=== PATIENT | male | born 1955 | race Caucasian/White ===

== ENCOUNTER 2021-07-17 14:00 | Inpatient (IN) | payer OTHER, SELFPAY ==
[2021-07-17] VITALS (10 sets, daily range): BP systolic 139–184; BP diastolic 51–100; PULSE 78–105; RESP 18–38; TEMP 36.6–36.9; O2SAT 96–99; BMI 19.9
--- NOTE | ~2021-07-17 | CT_ITS ---
EXAMINATION: CT CHEST WITHOUT CONTRAST CLINICAL INFORMATION: Shortness of breath and hypoxia. COMPARISON: Chest radiograph earlier today and MR lumbar spine 05/28/2008 TECHNIQUE: Multidetector volumetric CT imaging of the chest was done. Axial MIP volume rendering provided. Sagittal and coronal reformatted images were obtained. This CT examination was performed using dose optimization techniques as appropriate, variously including the following: *Automated exposure control *Adjustment of mA and/or kV according to patient size (this includes techniques or standardized protocols for targeted exams where dose is matched to indication/reason for exam; i.e. extremities or head) *Use of iterative reconstruction technique DLP: 334 mGy-cm FINDINGS: LUNGS AND PLEURA: Diffuse pulmonary infiltrates are present along with a small right pleural effusion with loculated fluid in the major fissure and a trace left pleural effusion. There is thickening of intralobular septa along with peribronchial cuffing. The pulmonary arteries enlarged at 4.2 cm suggesting pulmonary hypertension. The heart is enlarged with enlargement of both ventricles. An aortic valve prosthesis is present. Severe coronary disease is present. Many of these findings suggests CHF. However, airspace disease is nonspecific. There are some ill-defined pulmonary nodules present (see colon images) and follow-up is necessary to make sure these findings resolve. Associated Covid is certainly a possibility as well. MEDIASTINUM: Heart is enlarged. Coronary calcifications are present. See discussion above. A small pericardial effusion is seen. No gross hilar or mediastinal lymphadenopathy is seen. Small lymph nodes are present. An aortic dissection is present beginning in the distal thoracic aorta where the calcified intima is displaced. The dissection is seen to the bottom slice of the scan. The aortic diameter is not increased. Patency of the lumens cannot be judged as no contrast was administered. On the MR lumbar spine from 2007, the above-mentioned portion of the aorta was not included. The more distal aorta shows no dissection at that time but did demonstrate some mild infrarenal dilatation at 2.6 cm. AXILLA: No lymphadenopathy. UPPER ABDOMEN: Unremarkable. OSSEOUS STRUCTURES: Unremarkable. CT/CT chest wo con IMPRESSION: 1. The heart is enlarged with biventricular failure and pulmonary hypertension. There is increased septal thickening with pleural effusions and peribronchial cuffing. These findings suggest CHF with interstitial edema. Echocardiography would be of value. 2. Additional airspace disease and some ill-defined opacities could represent pneumonia such as Covid. Follow-up CT scan after treatment is recommended to make sure abnormalities clear. 3. Aortic dissection beginning in the distal thoracic aorta extending to the bottom of the scan just above the level of the celiac. Fleischner guidelines were followed.
--- NOTE | ~2021-07-17 | XR_ITS ---
EXAMINATION: XR CHEST CLINICAL INFORMATION: Dyspnea. Rule out pneumonia. COMPARISON: None TECHNIQUE: Frontal view of the chest was obtained. FINDINGS: The cardiac silhouette is slightly enlarged. The thoracic aorta is calcified. Hilar and mediastinal contours are otherwise unremarkable. There is bilateral diffuse airspace disease. There are small bilateral pleural effusions. There are degenerative changes of the spine. XR/XR chest 1V IMPRESSION: Slightly enlarged cardiac silhouette. Bilateral airspace disease and small bilateral pleural effusions. Differential would include CHF and pneumonia.
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
--- NOTE | 2021-07-17 14:21 | ECG_ITS ---
Test Reason : dyspnea Blood Pressure : / mmHG Vent. Rate : 095 BPM Atrial Rate : 095 BPM P-R Int : 154 ms QRS Dur : 092 ms QT Int : 340 ms P-R-T Axes : 057 003 137 degrees QTc Int : 427 ms Sinus rhythm with Premature atrial complexes Left ventricular hypertrophy with repolarization abnormality ( R in aVL , Sokolow-Shelton , [place] product ) ST depression in Lateral leads Abnormal ECG No previous ECGs available Referred By: Yakov Palafox Electronically Signed By:JUDITH OCHOA MD
[2021-07-17] MEDS: Albuterol Sulfate (0.083%) 2.5 MG/3 ML VIAL.NEB 5 MG INHALE (14:32)
[2021-07-17 14:43] LABS: MANUAL DIFF FLAG NO
[2021-07-17 14:46] LABS: Basophils Absolute Auto 0.1 X10*3/uL (0.0-0.2); Basophils Percent Auto 0.9 % (0-2); Eosinophils Percent Auto 0.4 % (0-4); Hematocrit 38.3 % (42.0-52.0); Hemoglobin 12.1 g/dl (14.0-18.0); Imm Gran Abs Auto 0.03 X10*3/uL (0.00-0.03); Imm Gran Pct Auto 0.4 % (0.0-0.4); Lymphocytes Absolute Auto 0.2 X10*3/uL (1.2-4.9); Lymphocytes Percent Auto 3.1 % (20-40); Mean Corpuscular HGB Conc 31.6 g/dl (31.0-36.0); Mean Corpuscular Hemoglobin 30.9 pg (27.0-33.0); Mean Platelet Volume 11.8 fL (9.4-12.4); Monocytes Absolute Auto 0.6 X10*3/uL (0.1-1.2); Monocytes Percent Auto 9.1 % (2-11); Neutrophils Absolute Auto 6.1 x10*3/uL (2.0-8.3); Neutrophils Percent Auto 86.1 % (45-73); Platelet Count 182 X10*3/uL (160-400); Red Blood Count 3.91 X10*6/uL (4.60-5.80); Red Cell Distribution Width 15.5 % (11.0-16.0)
[2021-07-17 14:58] LABS: Lactic Acid 1.8 mmol/L (0.5-2.0)
[2021-07-17 15:00] LABS: COVID-19 Test Negative (Negative)
[2021-07-17 15:12] LABS: Troponin-I High Sensitivity 257.7 ng/L (<3.5-35.0)
[2021-07-17 15:17] LABS: Alanine Aminotransferase 9 U/L (0-40); Albumin Level 4.3 g/dL (3.5-5.0); Alkaline Phosphatase 111 U/L (39-117); Anion Gap 20 (12-20); Aspartate Amino Transferase 25 U/L (5-37); Blood Urea Nitrogen 26 mg/dL (9-16); Calcium 9.5 mg/dL (8.4-10.2); Carbon Dioxide 24 mmol/L (22-29); Chloride 102 mmol/L (96-108); Creatinine Clr Calc Pharmacy 9.3; Estimated Glomerular Filt Rate 8; Glucose Random 109 mg/dL (60-115); Lipase 18 U/L (8-78); Potassium 5.3 mmol/L (3.3-5.1); Sodium 141 mmol/L (135-145); Total Protein 6.4 g/dL (6.5-8.0)
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
[2021-07-17] MEDS: Piperacillin Sodium/Tazobactam 3.375 GM in 0.9 % Sodium Chloride 50 ML IV (15:51)
[2021-07-17 16:43] LABS: ABG Base Excess 1.4 mmol/L; ABG HCO3 25 mmol/L (22-26); ABG pCO2 38 mmHg (32-45); ABG pCO2 TC 37 mmHg (32-45); ABG pH 7.43 (7.35-7.45); ABG pH TC 7.43 (7.35-7.45); ABG pO2 53 mmHg (83-108); ABG pO2 TC 52 (83-108)
[2021-07-17 17:16] LABS: Influenza A PCR NEGATIVE (Negative); Influenza B PCR NEGATIVE (Negative); Resp Syncy Virus RNA Qual PCR NEGATIVE (Negative); SARS COV2 PCR INHOUSE NEGATIVE (Negative)
[2021-07-17] MEDS: vancomycin HCL 1,000 MG in 0.9 % Sodium Chloride 250 ML 270 MG IV (18:04)
[2021-07-17 18:45] LABS: Troponin-I High Sensitivity 521.6 ng/L (<3.5-35.0)
[2021-07-17 18:46] LABS: ABG Refer to POC result
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
[2021-07-17 20:32] LABS: Venous Blood Gas Refer to POC result
[2021-07-17 20:33] LABS: VBG Base Excess 0.6 mmol/L; VBG HCO3 24 mmol/L (22-26); VBG pCO2 33 mmHg; VBG pH 7.46 (7.32-7.43); VBG pO2 81 mmHg
[2021-07-17 20:35] LABS: INTERNATIONAL NORM RATIO 4.4 (0.9-1.1); Prothrombin Time 51.7 SEC (9.9-13.0)
[2021-07-17 20:37] LABS: Partial Thromboplastin Time 47.7 SEC (24.1-38.0)
[2021-07-17 22:18] LABS: ABG Base Excess 0.7 mmol/L; ABG HCO3 24 mmol/L (22-26); ABG pCO2 35 mmHg (32-45); ABG pCO2 TC 35 mmHg (32-45); ABG pH 7.44 (7.35-7.45); ABG pH TC 7.44 (7.35-7.45); ABG pO2 112 mmHg (83-108); ABG pO2 TC 112 (83-108)
[2021-07-17 22:20] LABS: ABG Refer to POC result
[2021-07-18] VITALS (28 sets, daily range): BP systolic 109–177; BP diastolic 54–102; PULSE 72–101; RESP 18–39; TEMP 36.1–36.9; O2SAT 90–100
--- NOTE | 2021-07-18 01:37 | PC.NURSE ---
Pt alert and oriented x4, calm and cooperative. Pt states right shoulder discomfort. Denies chest pain. Pt states breathing has improved since being on BiPap. Pt remains on BiPap at this time, O2 sat at 98%, pt tolerating well. Pt able to talk in complete sentences, does not appear struggling to breath. #20 Right AC intact and flushes without difficulty. Vitals stable. To be transported to ICU with RIA Daugherty and respiratory Munir. Remains on tele monitor.
[2021-07-18] MEDS: methylPREDNISolone Sod Succ 125 MG/2 ML VIAL IVPUSH (03:06)
[2021-07-18] MEDS: fentaNYL citrate/PF 100 MCG/2 ML VIAL 50 MCG IVPUSH (03:15)
[2021-07-18 05:47] LABS: VBG Base Excess -0.7 mmol/L; VBG HCO3 23 mmol/L (22-26); VBG pCO2 36 mmHg; VBG pH 7.41 (7.32-7.43); VBG pO2 58 mmHg
[2021-07-18 06:09] LABS: Imm Gran Abs Auto 0.02 X10*3/uL (0.00-0.03); Imm Gran Pct Auto 0.5 % (0.0-0.4); Red Cell Distribution Width 15.1 % (11.0-16.0)
[2021-07-18 06:11] LABS: Basophils Percent Auto 0.7 % (0-2); Eosinophils Percent Auto 0.2 % (0-4); Hematocrit 31.6 % (42.0-52.0); Hemoglobin 9.7 g/dl (14.0-18.0); Lymphocytes Absolute Auto 0.2 X10*3/uL (1.2-4.9); Lymphocytes Percent Auto 3.6 % (20-40); Mean Corpuscular HGB Conc 30.7 g/dl (31.0-36.0); Mean Corpuscular Hemoglobin 30.3 pg (27.0-33.0); Mean Corpuscular Volume 98.8 fL (80.0-98.0); Mean Platelet Volume 13.3 fL (9.4-12.4); Monocytes Absolute Auto 0.3 X10*3/uL (0.1-1.2); Monocytes Percent Auto 6.3 % (2-11); Neutrophils Absolute Auto 3.7 x10*3/uL (2.0-8.3); Neutrophils Percent Auto 88.7 % (45-73); Platelet Count 108 X10*3/uL (160-400); White Blood Count 4.1 X10*3/uL (4.8-10.8)
[2021-07-18 06:23] LABS: INTERNATIONAL NORM RATIO 4.8 (0.9-1.1)
[2021-07-18 06:26] LABS: Partial Thromboplastin Time 49.2 SEC (24.1-38.0)
[2021-07-18 06:46] LABS: Anion Gap 24 (12-20); Blood Urea Nitrogen 39 mg/dL (9-16); Calcium 8.7 mg/dL (8.4-10.2); Carbon Dioxide 19 mmol/L (22-29); Chloride 105 mmol/L (96-108); Creatinine Clr Calc Pharmacy 7.9; Estimated Glomerular Filt Rate 7; Glucose Random 96 mg/dL (60-115); Phosphorus 7.1 mg/dL (2.7-4.5); Potassium 5.5 mmol/L (3.3-5.1); Sodium 142 mmol/L (135-145)
[2021-07-18 07:22] LABS: Venous Blood Gas Refer to POC result
--- NOTE | 2021-07-18 07:30 | CA_ITS ---
Transthoracic Echocardiogram Patient (Last, First, Middle): Matias Ugarte R Gender: Male Date of : 1955 Age: 66 Procedure Date: 07/18/2021 Procedure Type: Transthoracic Echocardiogram Location: ICU Height: 177.8 cm Weight: 62.6 kg BSA: 1.78 m2 Heart Rate: bpm BP: 124 / 63 mmHg Local Hazmat Driver: Referring MD: Dominique Collins MD Symptoms: ? aortic stenosis, hx of TAVR 3yrs ago Study Quality: Fair ECG Rhythm: Undetermined Conclusions: - The left ventricular systolic function is low normal. The visually estimated ejection fraction is between 50-55%. - The basal inferior segment is hypokinetic. - A bioprosthetic aortic valve is present. The prosthetic aortic valve appears to be functioning abnormally. The peak aortic velocity is 4.39 m/s with a calculated peak gradient of 77 mmHg. The mean gradient is 47 mmHg. The aortic valve area is 0.91 cm2. There is mild aortic valve regurgitation. Dimensionless index 0.23. Acceleration time 83ms. Could be severe patient prosthesis mismatch with superimposed stenosis. - Moderate pulmonary hypertension is present. Findings Left Ventricle Normal left ventricular cavity size. There is moderately increased left ventricular wall thickness. The left ventricular systolic function is low normal. The visually estimated ejection fraction is between 50-55%. Diastolic function is indeterminate on the basis of available data. E/E prime ratio is >15, consistent with elevated filling pressures. Wall Motion Rest Echo Findings The basal inferior segment is hypokinetic. Right Ventricle Mildly increased right ventricular cavity size. There is normal right ventricular systolic function. Atria Mild biatrial enlargement. Aortic Valve A bioprosthetic aortic valve is present. The prosthetic aortic valve appears to be functioning abnormally. The aortic valve was not well visualized. The peak aortic velocity is 4.39 m/s with a calculated peak gradient of 77 mmHg. The mean gradient is 47 mmHg. The aortic valve area is 0.91 cm2. There is mild aortic valve regurgitation. Dimensionless index 0.23. Acceleration time 83ms. Could be severe patient prosthesis mismatch with superimposed stenosis. Mild aortic regurgitation, but unable to state if para-valvular or valvular. Mitral Valve There is mild mitral annular calcification. There is trace mitral valve regurgitation. There is no mitral valve stenosis. Pulmonic Valve The pulmonic valve was not well visualized. Tricuspid Valve Normal tricuspid valve structure. There is mild tricuspid valve regurgitation. The right ventricular systolic pressure is 52 mmHg. Moderate pulmonary hypertension is present. Great Vessels There is mild dilatation of the ascending aorta measuring 3.70 cm. Venous The inferior vena cava was not well visualized. Pericardium/Pleural There is no evidence of pericardial effusion. Prior Study Comparison No prior study available for comparison. Measurements 2D Linear Measurements IVSd: 1.42 0.6-0.9/0.6-1.0 cm LVIDd: 4.32 3.9-5.3/4.2-5.9 cm LVIDd Index: 2.43 2.4-3.2/2.2-3.1 cm/m2 LVIDs: 2.74 2.0-3.6 cm LVPWd: 1.40 0.7-1.1 cm Ao Root: 3.10 2.1-3.5 cm LA Diam: 4.00 2.7-3.8/3.0-4.0 cm LAIDs Index: 2.25 1.5-2.3 cm/m2 LV Mass: 294.71 67-162/88-224 g LV Mass Index: 165.57 43-95/49-115 g/m2 LVOT Diam: 2.00 3.0+(-)1.3 cm 2D Systolic Function EF 4C: 35.00 >55% EF 2C: 40.10 >55% EF BiP: 37.30 >55% Mitral Valve MV VTI: 0.37 MV Pk Greg: 1.52 MV Mn Greg: 0.78 MV Pk Grad: 9.00 MV Mn Grad: 3.00 MV Pk E: 1.53 MV Decel Time: 276.00 E'Lateral: 7.40 E'Medial: 4.90 E/E' Med: 31.20 E/E' Lat: 20.70 PHT: 81.00 MVA PHT: 2.72 MVA Continuity: 2.14 Decel Gray: 5.52 Aortic Valve AoV Pk Greg: 4.39 AoV Mn Greg: 3.20 AoV VTI: 0.86 AoV Pk Grad: 77.00 Aov Mn Grad: 47.00 SHELBY Cont.VTI: 0.91 LVOT LVOT Pk Greg: 1.14 LVOT Mn Greg: 0.79 LVOT VTI: 0.25 LVOT Pk Grad: 5.00 LVOT Mn Grad: 3.00 LVOT Diam: 2.00 LVOT Area: 3.14 Diastolic Function MV Pk E: 1.53 E'Medial: 4.90 E/E' Med: 31.20 E' Laterial: 7.40 E/E' Lat: 20.70 Right Ventricle TAPSE (mm): 24.00 TVS' Greg: 13.60 Tricuspid Valve TR Pk Greg: 3.50 TR Pk Grad: 49.00 RA Press: 3.00 RVSP: 52.00 Great Vessels Aorta Ao Root-2D: 3.10 2.0-3.7 cm Ao Asc: 3.70 2.1-3.4 cm Pulmonary Valve PV Pk Greg: 1.10 Peak PV Grad: 5.00 Updated in Other Vendor System with Status of Final Roger Mclean MD electronically signed on 07/18/2021 4:09:38 PM with status of Final
[2021-07-18] MEDS: Albuterol/Iprat 2.5/0.5MG 3 ML AMPUL.NEB INHALE ×4 (08:05→19:04)
[2021-07-18 08:15] LABS: Troponin-I High Sensitivity 795.7 ng/L (<3.5-35.0)
[2021-07-18 08:36] LABS: Erythrocyte Sedimentation Rate 18 MM/HR (0-15)
[2021-07-18] MEDS: Aspirin 81 MG TAB.CHEW PO (13:17)
[2021-07-18] MEDS: carvediloL 3.125 MG TABLET PO ×2 (13:17→19:16)
[2021-07-18] MEDS: methylPREDNISolone Sod Succ 40 MG/ML VIAL IVPUSH (13:18)
[2021-07-18 13:41] LABS: Troponin-I High Sensitivity 499.5 ng/L (<3.5-35.0)
--- NOTE | 2021-07-18 15:13 | W.PM.CCCN ---
History of Present Illness Data of Consult Service Date: 07/18/21 Requesting physician: Yakov Palafox Primary Care Provider: Unknown Physician HPI Reason for consult: Syncope and acute respiratory failure 66-year-old male with extensive history consisting of COPD and interstitial fibrosis with previous coronary stenting and atherosclerotic disease including abdominal aortic aneurysm and had a TAVR aortic valve replacement 3 and half years ago and also a background of paroxysmal atrial fibrillation and is an end-stage renal disease that is dialysis dependent and he had his last dialysis the day before He was extremely short of breath trying to drive to the hospital had a syncopal episode and has no recall since then and is clearly in marked respiratory distress with respiratory rate in the 40s with accessory muscle use and diaphragmatic effort and in reviewing his CT scan besides the interstitial fibrosis it looks like he might have some superimposed pulmonary edema so we started him on BiPAP support initially veno correcting his oxygenation and gradually his work of breathing started to improve and we sent off a troponin the 1st 1 being elevated at 250 and then we ordered a 2nd 1 and 3 hours later was up to 500 and then this morning to 750 all indicating probable acute coronary syndrome and I did a bedside echo in the emergency room determining he is at mild concentric hypertrophy with mild global hypokinesis with 50% ejection fraction but the aortic valve replacement was heavily calcified with a velocity of 4.5 m/sec establishing this as a critically restenosed valve prosthesis He was not clinically to fluid overloaded and he had normal IVC diameter with inspiratory collapse and treatment with BiPAP did the trick He also has recurrent GI bleeding due to probable angiodysplastic disease and he is on Coumadin because of paroxysmal atrial fibrillation and came in with a therapeutic INR Review of Systems Review of Systems: Yes all other systems are reviewed and are negative [facility] Past Medical History Medical History (Updated 07/18/21 @ 15:11 by Dominique Collins MD) AAA (abdominal aortic aneurysm) On warfarin for atrial fibrillation Surgical History Surgical History (Updated 07/17/21 @ 20:34 by Juany Ramos PA-C) S/P TAVR (transcatheter aortic valve replacement) Social History Social History Household Members: None Housing: House Do you presently have visiting nurse or other home services: No Patient Tobacco Use Status: Current everyday Tobacco user Tobacco use type: Cigarette Cigarette Packs Per Day: 0.5 Cigarettes Per Day: 10.0 Years Smoked: 60 Smoked in Last 30 Days: Yes Use of substances other than those prescribed or required for medical reasons: Yes Substance Use Type: Marijuana Substance Use Frequency: Occasionally Currently Displaying Signs/Symptoms of Drug Intoxication Withdrawal: No Have you been hit, kicked, punched, or otherwise hurt by someone within the past year? If so, by whom?: No Do you feel safe in your current relationship?: No Current Relationship Is there a partner from a previous relationship who is making you feel unsafe now?: No Are you made to feel afraid or neglected: No Spiritual Healthcare Practices: NONE [employer] Healthcare Practices: NONE Cultural Healthcare Practices: NONE Advance Directives: No Advance Directives Information Provided: No Do you have thoughts of harming others: None Do you have a plan to hurt others: No Plan Recently lost weight without trying: No Nutrition Risks: No Nutritional Risk Meds Allergies Allergy/AdvReac Type Severity Reaction Status Date / Time No Known Allergies Allergy Verified 07/17/21 14:20 Active Medications: Current Medications Albuterol/Ipratropium (Albuterol/Iprat 2.5/0.5mg 3 Ml Ampul.Neb) 3 ml INHALE RQ4H WHILE AWAKE [facility] Last Admin: 07/18/21 12:03 Dose: 3 ml Documented by: Aspirin (Aspirin 81 Mg Tab.Chew) 81 mg PO DAILY [facility] Last Admin: 07/18/21 13:17 Dose: 81 mg Documented by: Carvedilol (Carvedilol 3.125 Mg Tablet) 3.125 mg PO BID [facility]; Protocol Last Admin: 07/18/21 13:17 Dose: 3.125 mg Documented by: Lidocaine HCl (Lidocaine Hcl 1 % Mpf 2 Ml Ampul) 0.5 ml SUBCUT [id number] [facility] Last Admin: 07/18/21 14:14 Dose: Not Given Documented by: Methylprednisolone Sodium Succinate (Methylprednisolone Sod Succ 40 Mg/Ml Vial) 40 mg IVPUSH Q8H [facility] Physical Exam Vital Signs: Vital Signs: Last Vital Signs Temp 97.8 F 07/18/21 12:00 Pulse 95 07/18/21 14:00 Resp 20 07/18/21 14:00 BP 141/102 H 07/18/21 14:00 Pulse Ox 96 07/18/21 14:00 Oxygen Flow Rate 15 07/17/21 14:11 BMI result Body Mass Index 20.0 Currently off of BiPAP in no distress alert an oriented and nonfocal Classic parvus and tardus carotid upstrokes with late peaking systolic murmur consistent with critical aortic stenosis Scattered bilateral rales but no diaphragmatic or accessory muscle use Benign abdomen Skin intact Results Labs CBC & Chem 7: 07/18/21 05:39 07/18/21 05:39 Labs: Short CBC 07/18/21 Range/Units 05:39 WBC 4.1 L (4.8-10.8) X10*3/uL Hgb 9.7 L (14.0-18.0) g/dl Hct 31.6 L (42.0-52.0) % Plt Count 108 L D (160-400) X10*3/uL BMP 07/17/21 07/18/21 14:38 05:39 Sodium 141 142 Potassium 5.3 H 5.5 H Chloride 102 105 Carbon Dioxide 24 19 L BUN 26 H 39 H Creatinine 6.71 H* 7.93 H* Calcium 9.5 8.7 D Liver Function 07/17/21 Range/Units 14:38 Total Bilirubin 1.0 (0.0-1.0) mg/dL AST 25 (5-37) U/L ALT 9 (0-40) U/L Alkaline Phosphatase 111 (39-117) U/L Albumin 4.3 (3.5-5.0) g/dL Assessment and Plan (1) Acute coronary syndrome with high troponin: Status: Acute (2) Pulmonary edema cardiac cause: Status: Acute (3) CHF (congestive heart failure): Status: Acute (4) Pulmonary hypertension: Status: Acute (5) Pneumonia: Status: Acute (6) History of esophageal stricture: Status: Acute (7) Dependence on hemodialysis: Status: Acute (8) Interstitial lung disease: Status: Acute (9) ESRD (end stage renal disease): Status: Acute (10) Aortic stenosis: Status: Acute (11) PAF (paroxysmal atrial fibrillation): Status: Acute I discussed with the patient and the patient's clamp operator and the patient's boilermaker helper and we all agree he needs to have a relatively urgent cardiac catheterization because he is high risk for not only a recurrent event but even for sudden demise
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
--- NOTE | 2021-07-18 17:03 | P.DS_ITS ---
DS: Providers Provider Date of Service: 07/18/21 Date of admission: 07/17/21 20:03 Date of discharge: 07/18/21 Primary care physician: Unknown Physician Admitting clinician: Dominique Collins Attending physician on admission: Dominique Collins Attending physician on discharge: Dominique Collins Discharging clinician: Dominique Collins DS: Transfer Hospital Acceptance Reason for Transfer: Need for cardiac catheterization Name of Facility: [facility] Accepting Provider: Dr. 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: Status: Acute (8) Interstitial lung disease: Status: Acute (9) ESRD (end stage renal disease): Status: Acute (10) Aortic stenosis: Status: Acute (11) PAF (paroxysmal atrial fibrillation): Status: Acute DS: Summary Hospital Course Hospital Course: Has had 1 week of severe exertional fatigability and shortness of breath and came in with precipitous shortness of breath and had a syncopal episode in the car or In the emergency room he was in acute hypoxemic respiratory failure with marked respiratory distress very tachypneic with accessory muscle use and diaphragmatic effort and bedside echo demonstrated 50% ejection fraction but no segmental wall motion abnormality and was diffuse but he clearly had a calcified TAVR valve in the aortic position of course with a 4.5 m per 2nd jet across the valve indicating that the valve is critically restenosed me even though it is only 3 in a half years old and he did develop a troponin pattern going from 250-5 100- 750 in back down to 500 indicating an acute coronary syndrome this is with a man who has got a history of abdominal aortic aneurysm as well as previous coronary stenting-so this was ischemic pulmonary edema with critical aortic valve restenosis and possible acute coronary syndrome a as well and he did convert from sinus rhythm with left ventricular enlargement and diffuse nonspecific ST-T changes to atrial fibrillation controlled rate He had a complete hemodialysis treatment today without consequence and is currently off BiPAP on room air with a saturation of 96% stable blood pressure in the 120s heart rate is 70-80 Status at Discharge Cognitive/behavioral status at discharge: Awake alert oriented fully understanding and expressed a desire to be aggressive inguinal including cardiac catheterization Functional status at discharge: independent ambulation Time Spent with Patient Time attestation: Total time spent providing and/or coordinating discharge services: Discharge coordination time: Greater than 30 minutes Quality: Stroke Does the patient have a stroke diagnosis?: No Physical Exam Vital Signs: Vital Signs: Last Vital Signs Temp 97.6 F 07/18/21 16:00 Pulse 94 07/18/21 16:00 Resp 21 H 07/18/21 16:00 BP 143/62 H 07/18/21 16:00 Pulse Ox 97 07/18/21 16:00 Oxygen Flow Rate 15 07/17/21 14:11 BMI result Body Mass Index 20.0 Currently atrial fibrillation with rate 84 oxygen saturation 98% blood pressure 128/60 Euvolemic with intact skin and warm and well-perfused Cardiac exam with classic parvus and tardus carotid upstrokes with late peaking systolic murmur across the aortic valve consistent with critical stenosis Abdomen benign with no organomegaly Chest without and wheezing and no accessory muscle or diaphragmatic effort DS: Data Data Completed and Pending Labs on day of discharge: Laboratory Results - last 24 hr 07/17/21 07/17/21 07/17/21 16:34 18:03 20:24 WBC RBC Hgb Hct MCV MCH MCHC RDW Plt Count MPV Immature Gran % (Auto) Neut % (Auto) Lymph % (Auto) [place] % (Auto) Eos % (Auto) Baso % (Auto) Lymph # (Auto) [place] # (Auto) Eos # (Auto) Baso # (Auto) Abs Immat Gran (auto) Absolute Neuts (auto) Absolute Nucleated RBC Nucleated RBC % (auto) ESR PT 51.7 H INR 4.4 H APTT 47.7 H O2 Saturation ABG pH at Pt Temp ABG pH (Temp Correct) ABG pCO2 at Pt Temp ABG pCO2 (Temp Corrct ABG pO2 at Pt Temp ABG pO2 (Temp Correct ABG HCO3 ABG Base Excess (Actual) VBG pH VBG pCO2 VBG pO2 VBG HCO3 VBG O2 Saturation VBG Base Excess Sodium Potassium Chloride Carbon Dioxide Anion Gap BUN Creatinine Estim Creat Clear Calc Estimated GFR Random Glucose Calcium Phosphorus Magnesium Troponin I High Sens 521.6 H* D Influenza Type A (PCR) NEGATIVE Influenza Type B (PCR) NEGATIVE RSV RNA Qual (PCR) NEGATIVE SARS-CoV-2 RNA (RT-PCR) NEGATIVE 07/17/21 07/17/21 07/18/21 20:27 21:38 05:39 WBC 4.1 L RBC 3.20 L Hgb 9.7 L Hct 31.6 L MCV 98.8 H MCH 30.3 MCHC 30.7 L RDW 15.1 Plt Count 108 L D MPV 13.3 H Immature Gran % (Auto) 0.5 H Neut % (Auto) 88.7 H Lymph % (Auto) 3.6 L [place] % (Auto) 6.3 Eos % (Auto) 0.2 Baso % (Auto) 0.7 Lymph # (Auto) 0.2 L [place] # (Auto) 0.3 Eos # (Auto) 0.0 Baso # (Auto) 0.0 Abs Immat Gran (auto) 0.02 Absolute Neuts (auto) 3.7 Absolute Nucleated RBC 0.000 Nucleated RBC % (auto) 0.0 ESR PT INR APTT O2 Saturation 98.0 ABG pH at Pt Temp 7.44 ABG pH (Temp Correct) 7.44 ABG pCO2 at Pt Temp 35 ABG pCO2 (Temp Corrct 35 ABG pO2 at Pt Temp 112 H ABG pO2 (Temp Correct 112 H ABG HCO3 24 ABG Base Excess (Actual) 0.7 VBG pH 7.46 H VBG pCO2 33 VBG pO2 81 VBG HCO3 24 VBG O2 Saturation 96.0 VBG Base Excess 0.6 Sodium Potassium Chloride Carbon Dioxide Anion Gap BUN Creatinine Estim Creat Clear Calc Estimated GFR Random Glucose Calcium Phosphorus Magnesium Troponin I High Sens Influenza Type A (PCR) Influenza Type B (PCR) RSV RNA Qual (PCR) SARS-CoV-2 RNA (RT-PCR) 07/18/21 07/18/21 07/18/21 05:39 05:39 05:41 WBC RBC Hgb Hct MCV MCH MCHC RDW Plt Count MPV Immature Gran % (Auto) Neut % (Auto) Lymph % (Auto) [place] % (Auto) Eos % (Auto) Baso % (Auto) Lymph # (Auto) [place] # (Auto) Eos # (Auto) Baso # (Auto) Abs Immat Gran (auto) Absolute Neuts (auto) Absolute Nucleated RBC Nucleated RBC % (auto) ESR PT 57.0 H INR 4.8 H APTT 49.2 H O2 Saturation ABG pH at Pt Temp ABG pH (Temp Correct) ABG pCO2 at Pt Temp ABG pCO2 (Temp Corrct ABG pO2 at Pt Temp ABG pO2 (Temp Correct ABG HCO3 ABG Base Excess (Actual) VBG pH 7.41 VBG pCO2 36 VBG pO2 58 VBG HCO3 23 VBG O2 Saturation 84.0 VBG Base Excess -0.7 Sodium 142 Potassium 5.5 H Chloride 105 Carbon Dioxide 19 L Anion Gap 24 H BUN 39 H Creatinine 7.93 H* Estim Creat Clear Calc 7.9 Estimated GFR 7 Random Glucose 96 Calcium 8.7 D Phosphorus 7.1 H Magnesium 2.0 Troponin I High Sens Influenza Type A (PCR) Influenza Type B (PCR) RSV RNA Qual (PCR) SARS-CoV-2 RNA (RT-PCR) 07/18/21 07/18/21 07/18/21 07:28 07:28 12:59 WBC RBC Hgb Hct MCV MCH MCHC RDW Plt Count MPV Immature Gran % (Auto) Neut % (Auto) Lymph % (Auto) [place] % (Auto) Eos % (Auto) Baso % (Auto) Lymph # (Auto) [place] # (Auto) Eos # (Auto) Baso # (Auto) Abs Immat Gran (auto) Absolute Neuts (auto) Absolute Nucleated RBC Nucleated RBC % (auto) ESR 18 H PT INR APTT O2 Saturation ABG pH at Pt Temp ABG pH (Temp Correct) ABG pCO2 at Pt Temp ABG pCO2 (Temp Corrct ABG pO2 at Pt Temp ABG pO2 (Temp Correct ABG HCO3 ABG Base Excess (Actual) VBG pH VBG pCO2 VBG pO2 VBG HCO3 VBG O2 Saturation VBG Base Excess Sodium Potassium Chloride Carbon Dioxide Anion Gap BUN Creatinine Estim Creat Clear Calc Estimated GFR Random Glucose Calcium Phosphorus Magnesium Troponin I High Sens 795.7 H* 499.5 H* Influenza Type A (PCR) Influenza Type B (PCR) RSV RNA Qual (PCR) SARS-CoV-2 RNA (RT-PCR) Preliminary micro results at discharge 07/17/21 14:38 Blood Culture - Preliminary Blood - Venous No growth after 24 hours. 07/17/21 14:38 Blood Culture - Preliminary Blood - Venous No growth after 24 hours. Discharge Plan Discharge Anticipated Discharge Date/Time: 07/18/21 17:25 Patient Disposition: Xfer Acute Care Hospital Discharge Diagnosis: Acute coronary syndrome with troponin positivity with ischemic pulmonary edema now resolved- Critical aortic stenosis End-stage renal disease on hemodialysis Referrals: PhysicianIjeoma [Primary Care Provider] - 1 Week Discharge Orders: Discharge Order (Routine); Ordered 07/18/21 Ordered By: Dominique Collins Diet: other Activity on Discharge: As tolerated Stand Alone Forms: Patient Portal Discharge page Care Plan Goals: Transfer to [facility] hospital for cardiac catheterization and possible coronary revascularization and aortic valve repair Health Concerns: Needs dialysis schedule Plan of Treatment: Allowing the INR to resolve and keeping him off the Coumadin Continue the aspirin and carvedilol Assessment: Instead in stable condition but concerned about high risk of recurrence and/or sudden demise given this combination of issues
[2021-07-20 11:56] LABS: Myeloperoxidase Antibody <1.0 AI; Proteinase 3 PR3 Antibodies <1.0 AI
[2021-07-20 13:56] LABS: Anti Nuclear Antibody Screen NEGATIVE (NEGATIVE)
[2021-07-21 07:27] LABS: Angiotensin Converting Enzyme 17 U/L (9-67)
== END 2021-07-18 20:19 | disposition short-term general hospital (02) | DRG 311 ==
LOC: HO.ED 20:32 → HO.EDOVER 20:38 → HO.ICU 07-18 01:16
PROVIDERS: Internal Medicine Cardiovascular Disease; Admitting Provider Physician Assistant; Emergency Provider Emergency Medicine Emergency Medical Services; Visit Provider Physician Assistant
DX: I24.9 Acute ischemic heart disease, unspecified (principal); J18.9 Pneumonia, unspecified organism; N18.6 End stage renal disease; I48.0 Paroxysmal atrial fibrillation; F17.210 Nicotine dependence, cigarettes, uncomplicated; Z71.6 Tobacco abuse counseling; Z95.2 Presence of prosthetic heart valve; Z99.2 Dependence on renal dialysis; Z20.822 Contact with and (suspected) exposure to COVID-19; Z79.01 Long term (current) use of anticoagulants; Z79.899 Other long term (current) drug therapy
CPT/HCPCS: 0241U; 36415; 36600; 70450; 71045; 71250; 80048; 80053; 82164; 82803; 83605; 83690; 83735; 84100; 84484; 85025; 85610; 85652; 85730; 86021; 86038; 86039; 87040; 87635; 90999; 93005; 93306; 94640; 94644; 94660; 96365; 96367; 99285; 99291; 99292; J2185; J2543; J2920; J2930; J3010; J3370